=== PATIENT | male | born 2005 | race Two or more races ===

== ENCOUNTER 2023-01-01 18:19 | Emergency (ER) | payer MEDICAID, OTHER ==
[~2023-01-01] VITALS: Ht 162.6 cm; Wt 51.4 kg
[2023-01-01] MEDS ORDERED: CYCL-837 PO (20:45)
[2023-01-01] MEDS ORDERED: IBUP800T27 PO (20:45)
[2023-01-01 22:37] VITALS: BP 94/57
== END 2023-01-01 22:58 | disposition home or self-care (01) ==
LOC: ER 18:22
DX: S16.1XXA Strain of muscle, fascia and tendon at neck level, initial encounter (principal); Z79.1 Long term (current) use of non-steroidal anti-inflammatories (NSAID); Z79.899 Other long term (current) drug therapy; V49.9XXA Car occupant (driver) (passenger) injured in unspecified traffic accident, initial encounter; Y93.89 Activity, other specified; Y92.410 Unspecified street and highway as the place of occurrence of the external cause; Y99.8 Other external cause status
CPT/HCPCS: 72125